=== PATIENT | male | born 1950 ===

== ENCOUNTER 2020-06-18 19:38 | Inpatient (IN) | payer MEDICARE, OTHER ==
[~2020-06-18] VITALS: Ht 172.7 cm; Wt 50.8 kg
--- NOTE | 2020-06-18 19:55 | NUR ---
RN BLADDER SCANNED PT. >999. MACDONALD NOT DRAINING. RN TO PLACE THREE WAY WITH UROJET FOR EXPECTED CBI. PT IRRITABLE DUE TO URINARY DISCOMFORT. WCTM.
[2020-06-18] MEDS ORDERED: LIDOCAINE 2%,20 ML JEL.PF.APP MM ONE ×2 (19:57→20:30)
[2020-06-18] MEDS ORDERED: SODIUM CHLORIDE FLUSH 10ML SYR IVF ONE (20:30)
--- NOTE | 2020-06-18 20:54 | NUR ---
CBI STARTED. DIFFICULTY MACDONALD INSERTION. ATTEMPTED WITH 20F, NO SUCCESS. SUCCESSFUL WITH 18F. ATTEMPTED TO IRRIGATE WITH SYRINGE. FLUID RETURN, PINK TINGED. NO CLOTS. PLACED ON CBI. FLUID RETURN NOTED. NO CLOTS PRESENT. WILL CONTINUE TO MONITOR.
[2020-06-18 21:18] LABS: BASOPHILS % (AUTO) 0 % (0-1); EOSINOPHILS % (AUTO) 0 % (1-7); LYMPHOCYTES % (AUTO) 13 % (22-44); MEAN CORPUSCULAR HEMOGLOBIN 18.5 pg (27.5-34.5); MONOCYTES % (AUTO) 10 % (2-9); NEUTROPHILS % (AUTO) 76 % (42-75); PLATELET COUNT 92 x10^3/uL (130-400); RED BLOOD COUNT 3.39 x10^6/uL (4.38-5.82); RED CELL DISTRIBUTION WIDTH 18.7 % (9.4-14.8)
[2020-06-18 21:20] LABS: INTERNATIONAL NORMALIZED RATIO 1.38 (0.93-1.1); PROTHROMBIN TIME 14.6 Seconds (9.6-11.5)
[2020-06-18 21:21] LABS: ALANINE AMINOTRANSFERASE 12 U/L (12-78); ALBUMIN 2.4 g/dL (3.4-5.0); ANION GAP 7 mmol/L (5-15); CHLORIDE 110 mmol/L (98-107); CREATININE 0.87 mg/dL (0.7-1.3)
[2020-06-18 21:23] LABS: ALKALINE PHOSPHATASE 47 U/L (45-117); BILIRUBIN,TOTAL 0.5 mg/dL (0.2-1.0); TOTAL PROTEIN 7.3 g/dL (6.4-8.2)
--- NOTE | 2020-06-18 21:30 | NUR ---
600output. [place] tinged.
[2020-06-18 21:57] LABS: MD MORPH REVIEW ONLY
[2020-06-18 22:00] LABS: MICROCYTOSIS 2+; TARGET CELLS 1+
[2020-06-18 22:01] LABS: <PLATELET ESTIMATE> DECREASED; <PLT MORPHOLOGY> NORMAL PLT MORPH; HYPOCHROMIA 2+
[2020-06-18 22:49] VITALS: BP 119/85
[2020-06-18 23:09] VITALS: BP 112/97
--- NOTE | 2020-06-18 23:18 | NUR ---
550 output from mendoza. 1L of fluids in via CBI. Output is clearing. ordered to stop CBI.
[2020-06-18] MEDS ORDERED: DILTIAZEM 5 MG/ML, 5ML ONE (23:20)
[2020-06-18] MEDS ORDERED: DILTIAZEM 5 MG/ML, 5ML IVPush ONE (23:30)
[2020-06-18] MEDS ORDERED: DILTIAZEM 125 MG in SODIUM CHLORIDE 0.9% 100 ML IV SCH (23:30)
--- NOTE | 2020-06-18 23:35 | NUR ---
CBI stopped. Urinary output still present when pt states he is urinating.
--- NOTE | 2020-06-19 00:15 | NUR ---
Report given to KAYLEEN Mendoza.
[2020-06-19] MEDS ORDERED: DOCUSATE 100 MG CAPSULE PO PRN (01:00)
[2020-06-19] MEDS ORDERED: ONDANSETRON ODT 4 MG PO PRN (01:00)
[2020-06-19] MEDS ORDERED: ONDANSETRON 2MG/ML, 2ML IVPush PRN (01:00)
[2020-06-19] MEDS ORDERED: BISACODYL 10 MG SUPP PR PRN (01:00)
[2020-06-19] MEDS ORDERED: LABETALOL 5MG/ML, 20ML IVPush PRN (01:00)
[2020-06-19] MEDS ORDERED: morphine SULFATE 10 MG/ML, 1ML IVPush PRN (01:00)
[2020-06-19] MEDS ORDERED: POLYETHYLENE GLYCOL 17 GM PACKET PO PRN (01:00)
[2020-06-19] MEDS ORDERED: PROMETHAZINE 25 MG/ML, 1ML IM PRN (01:00)
[2020-06-19 01:38] VITALS: BP 121/66
[2020-06-19 01:39] VITALS: BP 121/66
[2020-06-19] MEDS ORDERED: POTASSIUM CHLORIDE 40 MEQ in SODIUM CHLORIDE 0.9% 500 ML IV ONE (02:00)
[2020-06-19] MEDS: CEFTRIAXONE PMX 2GM/50ML 50 ML IVPB SCH (02:16)
[2020-06-19] MEDS: AZITHROMYCIN 500 MG in SODIUM CHLORIDE 0.9% 250 ML IV SCH (02:39)
[2020-06-19 07:16] VITALS: BP 108/77
[2020-06-19 07:19] LABS: BASOPHILS % (AUTO) 0 % (0-1); EOSINOPHILS % (AUTO) 0 % (1-7); LYMPHOCYTES % (AUTO) 5 % (22-44); MEAN CORPUSCULAR HEMOGLOBIN 20.7 pg (27.5-34.5); MEAN CORPUSCULAR HGB CONC 30.5 g/dL (33.2-36.2); MEAN PLATELET VOLUME 8.5 fL (7.4-10.4); MONOCYTES % (AUTO) 9 % (2-9); NEUTROPHILS % (AUTO) 87 % (42-75); PLATELET COUNT 93 x10^3/uL (130-400); RED BLOOD COUNT 3.64 x10^6/uL (4.38-5.82)
[2020-06-19 07:24] LABS: ALBUMIN 2.4 g/dL (3.4-5.0); ANION GAP 6 mmol/L (5-15); CALCIUM 7.7 mg/dL (8.5-10.1); CHLORIDE 114 mmol/L (98-107)
[2020-06-19 07:42] LABS: MD MORPH REVIEW ONLY
[2020-06-19 07:45] LABS: ANISOCYTOSIS 2+; HYPOCHROMIA 2+; MICROCYTOSIS 2+; TARGET CELLS 1+
[2020-06-19 07:46] LABS: <PLATELET ESTIMATE> DECREASED; <PLT MORPHOLOGY> NORMAL PLT MORPH; SCHISTOCYTES 1+; TEAR DROPS 1+
[2020-06-19] MEDS ORDERED: LIDOCAINE 1%, 10ML ONE (07:46)
[2020-06-19 07:55] LABS: ALANINE AMINOTRANSFERASE 14 U/L (12-78); ALKALINE PHOSPHATASE 42 U/L (45-117); BILIRUBIN,TOTAL 1.3 mg/dL (0.2-1.0); CHOL/HDL RATIO 1.7; CHOLESTEROL, TOTAL 52 mg/dL (140-239); CREATININE 0.81 mg/dL (0.7-1.3); HDL CHOL % 60 % (26-37); HDL CHOLESTEROL (DIRECT) 31 mg/dL (40-60); LDL CHOLESTEROL,CALCULATED 14 mg/dL (54-169); LDL/HDL RATIO 0.5 (0.5-3.0); TOTAL PROTEIN 7.2 g/dL (6.4-8.2); TRIGLYCERIDES 36 mg/dL (50-200); VLDL CHOLESTEROL 7 mg/dL (0-25)
[2020-06-19] MEDS ORDERED: POTASSIUM CHLORIDE 20 MEQ TAB.ER.PRT PO ONE (08:30)
[2020-06-19] MEDS: ALBUMIN HUMAN 25% 100 ML IV SCH ×2 (10:11→17:26)
[2020-06-19] MEDS ORDERED: DILTIAZEM 60 MG TABLET PO SCH (11:00)
[2020-06-19 12:27] VITALS: BP 99/64
[2020-06-19] MEDS ORDERED: MAGNESIUM SULFATE PMX 2GM/50ML 50 ML IV ONE (13:30)
[2020-06-19] MEDS ORDERED: POTASSIUM PHOSPHATE 22 MEQ in SODIUM CHLORIDE 0.9% 500 ML IV ONE (13:30)
[2020-06-19 20:44] VITALS: BP 95/64
[2020-06-19] MEDS: DILTIAZEM 60 MG TABLET PO SCH (20:55)
[2020-06-19] MEDS ORDERED: OXYBUTYNIN CHLORIDE 5 MG TABLET ONE (22:30)
[2020-06-19] MEDS: OXYBUTYNIN CHLORIDE 5 MG TABLET PO SCH (22:32)
[2020-06-20] VITALS (13 sets, daily range): BP systolic 92–124; BP diastolic 49–80
[2020-06-20] MEDS: OXYcodone IR 5MG TABLET PO PRN ×2 (00:55→21:50)
[2020-06-20] MEDS ORDERED: LORazepam 2 MG/ML, 1ML IVPush PRN (01:30)
[2020-06-20] MEDS: CEFTRIAXONE PMX 2GM/50ML 50 ML IVPB SCH (02:38)
[2020-06-20] MEDS: DILTIAZEM 60 MG TABLET PO SCH ×3 (03:37→17:34)
[2020-06-20] MEDS: AZITHROMYCIN 500 MG in SODIUM CHLORIDE 0.9% 250 ML IV SCH (03:37)
[2020-06-20] MEDS: ALBUMIN HUMAN 25% 100 ML IV SCH ×2 (05:06→11:00)
[2020-06-20] MEDS ORDERED: HALOPERIDOL 5 MG/ML IM PRN (08:00)
[2020-06-20] MEDS: OXYBUTYNIN CHLORIDE 5 MG TABLET PO SCH ×2 (11:08→21:46)
[2020-06-20 11:48] LABS: BASOPHILS % (AUTO) 0 % (0-1); EOSINOPHILS % (AUTO) 0 % (1-7); LYMPHOCYTES % (AUTO) 11 % (22-44); MEAN CORPUSCULAR HEMOGLOBIN 20.2 pg (27.5-34.5); MEAN PLATELET VOLUME 8.4 fL (7.4-10.4); MONOCYTES % (AUTO) 7 % (2-9); NEUTROPHILS % (AUTO) 81 % (42-75); PLATELET COUNT 75 x10^3/uL (130-400); RED BLOOD COUNT 3.25 x10^6/uL (4.38-5.82); RED CELL DISTRIBUTION WIDTH 22.5 % (9.4-14.8)
[2020-06-20 11:56] LABS: % IRON SATURATION 4 % (20-55); ALANINE AMINOTRANSFERASE 9 U/L (12-78); ALBUMIN 2.8 g/dL (3.4-5.0); ANION GAP 7 mmol/L (5-15); CALCIUM 7.7 mg/dL (8.5-10.1); CHLORIDE 114 mmol/L (98-107); CREATININE 0.62 mg/dL (0.7-1.3); IRON LEVEL 12 mcg/dL (65-175); TOTAL IRON BINDING CAPACITY 267 mcg/dL (250-450)
[2020-06-20 11:59] LABS: ALKALINE PHOSPHATASE 33 U/L (45-117); BILIRUBIN,TOTAL 0.8 mg/dL (0.2-1.0); TOTAL PROTEIN 6.3 g/dL (6.4-8.2)
[2020-06-20 12:16] LABS: MEAN CORPUSCULAR HGB CONC 29.6 g/dL (33.2-36.2)
[2020-06-20 12:44] LABS: MD SCAN
[2020-06-21 01:06] VITALS: BP 124/73
[2020-06-21] MEDS: DILTIAZEM 60 MG TABLET PO SCH ×3 (01:09→16:34)
[2020-06-21 01:42] VITALS: BP 124/73
[2020-06-21 04:41] LABS: BASOPHILS % (AUTO) 1 % (0-1); EOSINOPHILS % (AUTO) 0 % (1-7); LYMPHOCYTES % (AUTO) 10 % (22-44); MEAN CORPUSCULAR HEMOGLOBIN 23.8 pg (27.5-34.5); MEAN CORPUSCULAR HGB CONC 32.1 g/dL (33.2-36.2); MEAN PLATELET VOLUME 8.6 fL (7.4-10.4); MONOCYTES % (AUTO) 8 % (2-9); NEUTROPHILS % (AUTO) 81 % (42-75); PLATELET COUNT 77 x10^3/uL (130-400); RED BLOOD COUNT 4.39 x10^6/uL (4.38-5.82)
[2020-06-21 04:52] LABS: ANION GAP 10 mmol/L (5-15); CALCIUM 7.8 mg/dL (8.5-10.1); CHLORIDE 115 mmol/L (98-107)
[2020-06-21 04:54] LABS: CREATININE 0.61 mg/dL (0.7-1.3)
[2020-06-21 05:43] LABS: ANISOCYTOSIS 2+; HYPOCHROMIA 1+; MD MORPH REVIEW ONLY; MICROCYTOSIS 1+
[2020-06-21 05:44] LABS: <PLATELET ESTIMATE> DECREASED; <PLT MORPHOLOGY> NORMAL PLT MORPH; ECHINOCYTES 1+; TEAR DROPS 1+
[2020-06-21 07:06] VITALS: BP 112/77
[2020-06-21] MEDS: OXYBUTYNIN CHLORIDE 5 MG TABLET PO SCH ×2 (09:00→21:53)
[2020-06-21 12:06] VITALS: BP 118/77
[2020-06-21 19:06] VITALS: BP 123/79
[2020-06-21] MEDS: OXYcodone IR 5MG TABLET PO PRN (21:53)
[2020-06-22 00:05] LABS: OCCULT BLOOD POSITIVE (NEGATIVE)
[2020-06-22 00:28] VITALS: BP 119/76
[2020-06-22] MEDS: DILTIAZEM 60 MG TABLET PO SCH ×3 (00:32→16:37)
[2020-06-22] MEDS: OXYBUTYNIN CHLORIDE 5 MG TABLET PO SCH ×2 (08:38→21:31)
[2020-06-22] MEDS: FUROSEMIDE 40 MG TABLET PO SCH (08:39)
[2020-06-22] MEDS: SPIRONOLACTONE 25 MG TABLET PO SCH ×2 (08:39→21:31)
[2020-06-22 10:13] LABS: BASOPHILS % (AUTO) 0 % (0-1); EOSINOPHILS % (AUTO) 0 % (1-7); LYMPHOCYTES % (AUTO) 7 % (22-44); MEAN CORPUSCULAR HEMOGLOBIN 23.7 pg (27.5-34.5); MEAN CORPUSCULAR HGB CONC 31.5 g/dL (33.2-36.2); MEAN PLATELET VOLUME 8.7 fL (7.4-10.4); MONOCYTES % (AUTO) 6 % (2-9); NEUTROPHILS % (AUTO) 87 % (42-75); PLATELET COUNT 95 x10^3/uL (130-400); RED BLOOD COUNT 5.31 x10^6/uL (4.38-5.82); RED CELL DISTRIBUTION WIDTH 27.2 % (9.4-14.8)
[2020-06-22 10:19] LABS: ANION GAP 10 mmol/L (5-15); CALCIUM 8.5 mg/dL (8.5-10.1); CHLORIDE 114 mmol/L (98-107)
[2020-06-22 12:08] VITALS: BP 118/73
[2020-06-22 13:08] LABS: MD SCAN
[2020-06-22] MEDS: MOVIPREP POWDER 1 PREP KIT PO SCH ×2 (17:45→21:31)
[2020-06-22 18:36] VITALS: BP 99/88
[2020-06-22] MEDS ORDERED: DIPHENHYDRAMINE 50 MG/ML, 1ML IVPush ONE (20:00)
[2020-06-23] MEDS: DILTIAZEM 60 MG TABLET PO SCH ×3 (01:55→16:42)
[2020-06-23 02:02] VITALS: BP 122/80
[2020-06-23] MEDS: PANTOPRAZOLE 40MG TABLET PO SCH (04:54)
[2020-06-23 08:16] VITALS: BP 118/77
[2020-06-23 08:29] LABS: BASOPHILS % (AUTO) 1 % (0-1); EOSINOPHILS % (AUTO) 1 % (1-7); LYMPHOCYTES % (AUTO) 10 % (22-44); MEAN CORPUSCULAR HEMOGLOBIN 23.6 pg (27.5-34.5); MEAN CORPUSCULAR HGB CONC 31.5 g/dL (33.2-36.2); MEAN PLATELET VOLUME 8.5 fL (7.4-10.4); MONOCYTES % (AUTO) 8 % (2-9); NEUTROPHILS % (AUTO) 80 % (42-75); PLATELET COUNT 74 x10^3/uL (130-400); RED CELL DISTRIBUTION WIDTH 28.2 % (9.4-14.8)
[2020-06-23 08:31] LABS: ANION GAP 8 mmol/L (5-15); CALCIUM 8.3 mg/dL (8.5-10.1); CHLORIDE 109 mmol/L (98-107)
[2020-06-23 08:32] LABS: CREATININE 0.69 mg/dL (0.7-1.3)
[2020-06-23 08:39] LABS: INTERNATIONAL NORMALIZED RATIO 1.32 (0.93-1.1)
[2020-06-23 08:54] LABS: MD SCAN
[2020-06-23] MEDS: FUROSEMIDE 40 MG TABLET PO SCH (08:54)
[2020-06-23] MEDS: SPIRONOLACTONE 25 MG TABLET PO SCH ×2 (08:54→20:20)
[2020-06-23] MEDS: OXYBUTYNIN CHLORIDE 5 MG TABLET PO SCH ×2 (08:54→20:20)
[2020-06-23 13:08] VITALS: BP 117/81
[2020-06-23] MEDS ORDERED: MOVIPREP POWDER 1 PREP KIT PO ONE (15:00)
[2020-06-23 16:43] VITALS: BP 118/80
[2020-06-23 20:01] VITALS: BP 112/75
[2020-06-24] MEDS: DILTIAZEM 60 MG TABLET PO SCH ×3 (00:16→17:39)
[2020-06-24 00:57] VITALS: BP 120/79
[2020-06-24] MEDS: PANTOPRAZOLE 40MG TABLET PO SCH (04:33)
[2020-06-24 06:19] LABS: ANION GAP 8 mmol/L (5-15); CALCIUM 8.2 mg/dL (8.5-10.1); CHLORIDE 109 mmol/L (98-107); CREATININE 0.58 mg/dL (0.7-1.3)
[2020-06-24 06:31] VITALS: BP 100/69
[2020-06-24 07:05] LABS: BASOPHILS % (AUTO) 1 % (0-1); EOSINOPHILS % (AUTO) 1 % (1-7); LYMPHOCYTES % (AUTO) 12 % (22-44); MEAN CORPUSCULAR HEMOGLOBIN 23.8 pg (27.5-34.5); MEAN CORPUSCULAR HGB CONC 31.4 g/dL (33.2-36.2); MEAN PLATELET VOLUME 8.5 fL (7.4-10.4); MONOCYTES % (AUTO) 9 % (2-9); NEUTROPHILS % (AUTO) 79 % (42-75); PLATELET COUNT 70 x10^3/uL (130-400); RED BLOOD COUNT 5.03 x10^6/uL (4.38-5.82); RED CELL DISTRIBUTION WIDTH 29.2 % (9.4-14.8)
[2020-06-24 07:08] LABS: MD NO
[2020-06-24] MEDS: SPIRONOLACTONE 25 MG TABLET PO SCH ×2 (08:56→20:06)
[2020-06-24] MEDS: FUROSEMIDE 40 MG TABLET PO SCH (08:56)
[2020-06-24] MEDS: OXYBUTYNIN CHLORIDE 5 MG TABLET PO SCH ×2 (08:56→20:06)
[2020-06-24] MEDS ORDERED: CHLORHEXIDINE 15 ML UDC ONE (11:57)
[2020-06-24] MEDS ORDERED: PROPOFOL 50 ML ONE (12:58)
[2020-06-24] MEDS ORDERED: MIDAZOLAM 1 MG/ML, 2ML ONE (13:16)
[2020-06-24 17:37] VITALS: BP 105/73
[2020-06-24 19:08] VITALS: BP 102/76
[2020-06-25] MEDS: DILTIAZEM 60 MG TABLET PO SCH ×4 (00:34→19:44)
[2020-06-25 04:55] LABS: BASOPHILS % (AUTO) 1 % (0-1); EOSINOPHILS % (AUTO) 1 % (1-7); LYMPHOCYTES % (AUTO) 13 % (22-44); MEAN CORPUSCULAR HEMOGLOBIN 23.9 pg (27.5-34.5); MEAN CORPUSCULAR HGB CONC 31.8 g/dL (33.2-36.2); MEAN PLATELET VOLUME 8.5 fL (7.4-10.4); MONOCYTES % (AUTO) 10 % (2-9); NEUTROPHILS % (AUTO) 75 % (42-75); PLATELET COUNT 76 x10^3/uL (130-400); RED BLOOD COUNT 4.64 x10^6/uL (4.38-5.82); RED CELL DISTRIBUTION WIDTH 29.2 % (9.4-14.8)
[2020-06-25 05:10] LABS: CHLORIDE 107 mmol/L (98-107)
[2020-06-25 05:19] LABS: ALANINE AMINOTRANSFERASE 13 U/L (12-78); ALBUMIN 2.5 g/dL (3.4-5.0); ALKALINE PHOSPHATASE 39 U/L (45-117); ANION GAP 10 mmol/L (5-15); BILIRUBIN,TOTAL 0.5 mg/dL (0.2-1.0); CALCIUM 8.3 mg/dL (8.5-10.1); CREATININE 0.74 mg/dL (0.7-1.3); TOTAL PROTEIN 6.7 g/dL (6.4-8.2)
[2020-06-25 05:49] LABS: MD MORPH REVIEW ONLY
[2020-06-25 05:50] LABS: ANISOCYTOSIS 2+; HYPOCHROMIA 1+; MICROCYTOSIS 1+
[2020-06-25 05:51] LABS: <PLATELET ESTIMATE> DECREASED; <PLT MORPHOLOGY> NORMAL PLT MORPH
[2020-06-25] MEDS: PANTOPRAZOLE 40MG TABLET PO SCH (05:57)
[2020-06-25] MEDS ORDERED: POTASSIUM CHLORIDE 20 MEQ TAB.ER.PRT PO ONE ×2 (07:00→15:30)
[2020-06-25] MEDS ORDERED: MAGNESIUM SULFATE PMX 2GM/50ML 50 ML IV ONE (08:30)
[2020-06-25] MEDS: FUROSEMIDE 40 MG TABLET PO SCH (09:42)
[2020-06-25] MEDS: SPIRONOLACTONE 25 MG TABLET PO SCH ×2 (09:42→19:44)
[2020-06-25] MEDS: OXYBUTYNIN CHLORIDE 5 MG TABLET PO SCH ×2 (09:42→19:44)
[2020-06-25 12:12] VITALS: BP 110/76
[2020-06-25] MEDS ORDERED: POTASSIUM CHLORIDE 40 MEQ in SODIUM CHLORIDE 0.9% 500 ML IV ONE (15:30)
[2020-06-25 19:41] VITALS: BP 126/84
[2020-06-26 02:00] VITALS: BP 121/81
[2020-06-26] MEDS: DILTIAZEM 60 MG TABLET PO SCH ×4 (03:00→21:46)
[2020-06-26] MEDS ORDERED: DILTIAZEM 30 MG TABLET ONE (03:18)
[2020-06-26] MEDS: PANTOPRAZOLE 40MG TABLET PO SCH (05:47)
[2020-06-26 06:29] LABS: ANION GAP 7 mmol/L (5-15); CALCIUM 8.1 mg/dL (8.5-10.1); CHLORIDE 107 mmol/L (98-107)
[2020-06-26 06:30] LABS: CREATININE 0.79 mg/dL (0.7-1.3)
[2020-06-26 07:05] VITALS: BP 104/73
[2020-06-26] MEDS ORDERED: MAGNESIUM SULFATE PMX 2GM/50ML 50 ML IV ONE (09:30)
[2020-06-26] MEDS: OXYBUTYNIN CHLORIDE 5 MG TABLET PO SCH ×2 (10:06→21:46)
[2020-06-26] MEDS: FUROSEMIDE 40 MG TABLET PO SCH (10:07)
[2020-06-26] MEDS: SPIRONOLACTONE 25 MG TABLET PO SCH ×2 (10:07→21:46)
[2020-06-26 13:50] VITALS: BP 128/72
[2020-06-26 18:57] VITALS: BP 113/72
[2020-06-26 21:44] VITALS: BP 100/70
[2020-06-27 01:54] VITALS: BP 109/70
[2020-06-27 02:43] VITALS: BP 108/69
[2020-06-27] MEDS: DILTIAZEM 60 MG TABLET PO SCH ×2 (02:46→11:25)
[2020-06-27] MEDS: PANTOPRAZOLE 40MG TABLET PO SCH (06:12)
[2020-06-27 08:03] VITALS: BP 105/73
[2020-06-27 11:20] VITALS: BP 103/71
[2020-06-27] MEDS: SPIRONOLACTONE 25 MG TABLET PO SCH ×2 (11:24→23:07)
[2020-06-27] MEDS: FUROSEMIDE 40 MG TABLET PO SCH (11:25)
[2020-06-27] MEDS: OXYBUTYNIN CHLORIDE 5 MG TABLET PO SCH (11:25)
[2020-06-27 12:06] VITALS: BP 101/73
[2020-06-27] MEDS ORDERED: DILTIAZEM 30 MG TABLET ONE (14:12)
[2020-06-27] MEDS: DILTIAZEM 90 MG TABLET PO SCH ×2 (14:14→23:07)
[2020-06-27] MEDS: TAMSULOSIN 0.4 MG CAP.ER.24H PO SCH (18:07)
[2020-06-27 19:13] VITALS: BP 102/75
[2020-06-28 02:55] VITALS: BP 105/77
[2020-06-28] MEDS ORDERED: DILTIAZEM 30 MG TABLET ONE ×4 (05:20→21:11)
[2020-06-28] MEDS: DILTIAZEM 90 MG TABLET PO SCH ×3 (05:30→21:14)
[2020-06-28] MEDS: PANTOPRAZOLE 40MG TABLET PO SCH (05:31)
[2020-06-28 07:18] LABS: BASOPHILS % (AUTO) 1 % (0-1); EOSINOPHILS % (AUTO) 1 % (1-7); LYMPHOCYTES % (AUTO) 15 % (22-44); MEAN CORPUSCULAR HEMOGLOBIN 23.9 pg (27.5-34.5); MEAN CORPUSCULAR HGB CONC 31.5 g/dL (33.2-36.2); MEAN PLATELET VOLUME 8.7 fL (7.4-10.4); MONOCYTES % (AUTO) 9 % (2-9); NEUTROPHILS % (AUTO) 74 % (42-75); PLATELET COUNT 73 x10^3/uL (130-400); RED BLOOD COUNT 4.53 x10^6/uL (4.38-5.82); RED CELL DISTRIBUTION WIDTH 30.4 % (9.4-14.8)
[2020-06-28 07:29] LABS: ANION GAP 3 mmol/L (5-15); CALCIUM 8.2 mg/dL (8.5-10.1); CHLORIDE 105 mmol/L (98-107); CREATININE 0.85 mg/dL (0.7-1.3); MD NO
[2020-06-28 08:00] VITALS: BP 99/64
[2020-06-28] MEDS: TAMSULOSIN 0.4 MG CAP.ER.24H PO SCH ×2 (09:00→10:49)
[2020-06-28] MEDS: LACTOBACILLUS CHEW TABLET PO SCH ×3 (09:00→21:17)
[2020-06-28] MEDS ORDERED: MAGNESIUM SULFATE PMX 4GM/100M 100 ML IV ONE (09:00)
[2020-06-28] MEDS: FERROUS SULFATE 325 MG TABLET PO SCH ×2 (09:00→10:48)
[2020-06-28] MEDS: FUROSEMIDE 40 MG TABLET PO SCH ×2 (09:00→10:49)
[2020-06-28] MEDS: SPIRONOLACTONE 25 MG TABLET PO SCH ×3 (09:00→21:14)
[2020-06-28] MEDS ORDERED: TAMSULOSIN 0.4 MG CAP.ER.24H PO SCH (09:00)
[2020-06-28] MEDS ORDERED: ACETAMINOPHEN 325 MG TABLET PO PRN (09:00)
[2020-06-28 14:00] VITALS: BP 96/65
[2020-06-28] MEDS ORDERED: TAMSULOSIN 0.4 MG CAP.ER.24H PO ONE (14:30)
[2020-06-28 18:34] VITALS: BP 103/69
[2020-06-29 01:55] VITALS: BP 97/64
[2020-06-29 06:08] VITALS: BP 100/67
[2020-06-29] MEDS: PANTOPRAZOLE 40MG TABLET PO SCH (06:08)
[2020-06-29] MEDS: DILTIAZEM 90 MG TABLET PO SCH ×3 (06:09→19:53)
[2020-06-29 07:25] VITALS: BP 100/65
[2020-06-29] MEDS: FUROSEMIDE 40 MG TABLET PO SCH (08:43)
[2020-06-29] MEDS: LACTOBACILLUS CHEW TABLET PO SCH ×3 (08:44→19:56)
[2020-06-29] MEDS: SPIRONOLACTONE 25 MG TABLET PO SCH ×2 (08:44→19:53)
[2020-06-29] MEDS: TAMSULOSIN 0.4 MG CAP.ER.24H PO SCH (08:44)
[2020-06-29 12:13] VITALS: BP 100/69
[2020-06-29 18:34] VITALS: BP 105/73
[2020-06-29 20:07] VITALS: BP 95/65
[2020-06-30 03:01] VITALS: BP 100/74
[2020-06-30] MEDS: DILTIAZEM 90 MG TABLET PO SCH ×3 (05:46→19:45)
[2020-06-30] MEDS: PANTOPRAZOLE 40MG TABLET PO SCH (05:46)
[2020-06-30 08:20] VITALS: BP 93/62
[2020-06-30] MEDS: FERROUS SULFATE 325 MG TABLET PO SCH (08:37)
[2020-06-30] MEDS: FUROSEMIDE 40 MG TABLET PO SCH (08:37)
[2020-06-30] MEDS: LACTOBACILLUS CHEW TABLET PO SCH ×3 (08:38→19:46)
[2020-06-30] MEDS: SPIRONOLACTONE 25 MG TABLET PO SCH ×2 (08:38→19:45)
[2020-06-30] MEDS: TAMSULOSIN 0.4 MG CAP.ER.24H PO SCH (08:38)
[2020-06-30 14:14] VITALS: BP 107/69
[2020-06-30 18:35] VITALS: BP 94/68
[2020-07-01 00:13] VITALS: BP 98/66
[2020-07-01] MEDS: PANTOPRAZOLE 40MG TABLET PO SCH (05:03)
[2020-07-01] MEDS: DILTIAZEM 90 MG TABLET PO SCH (05:03)
[2020-07-01] MEDS ORDERED: TAMS-11 PO (07:10)
[2020-07-01] MEDS ORDERED: DILT90TA PO (07:10)
[2020-07-01] MEDS ORDERED: PANT40TA6 PO (07:10)
[2020-07-01] MEDS ORDERED: FURO40TA6 PO (07:10)
[2020-07-01] MEDS ORDERED: SPIR25TA PO (07:10)
[2020-07-01] MEDS ORDERED: FERR-51 PO (07:10)
[2020-07-01 07:20] VITALS: BP 87/51
[2020-07-01 08:15] VITALS: BP 95/65
[2020-07-01] MEDS: LACTOBACILLUS CHEW TABLET PO SCH (08:15)
[2020-07-01] MEDS: TAMSULOSIN 0.4 MG CAP.ER.24H PO SCH (08:15)
[2020-07-01] MEDS: FUROSEMIDE 40 MG TABLET PO SCH (08:15)
[2020-07-01] MEDS: SPIRONOLACTONE 25 MG TABLET PO SCH (08:15)
== END 2020-07-01 09:57 | disposition home health service (06) | DRG 432 ==
LOC: ED 23:18 → EDIP 23:33 → 4EST 06-19 01:26 → 4WST 06-19 18:37 → 5SO 06-25 20:09 → 4WST 06-28 04:02
PROVIDERS: ADMIT Internal Medicine; ATTEND Internal Medicine
PROC: 30230N1 Transfusion of Nonautologous Red Blood Cells into Peripheral Vein, Open Approach (ICD-10-PCS; principal; 2020-06-18)
PROC: 0W9G3ZZ Drainage of Peritoneal Cavity, Percutaneous Approach (ICD-10-PCS; 2020-06-19)
PROC: 0DB48ZX Excision of Esophagogastric Junction, Via Natural or Artificial Opening Endoscopic, Diagnostic (ICD-10-PCS; 2020-06-24)
PROC: 0DJD8ZZ Inspection of Lower Intestinal Tract, Via Natural or Artificial Opening Endoscopic (ICD-10-PCS; 2020-06-24)
DX: K74.60 Unspecified cirrhosis of liver (principal); J18.9 Pneumonia, unspecified organism; G93.41 Metabolic encephalopathy; D61.818 Other pancytopenia; R18.8 Other ascites; D68.9 Coagulation defect, unspecified; D62 Acute posthemorrhagic anemia; F05 Delirium due to known physiological condition; J98.11 Atelectasis; K22.10 Ulcer of esophagus without bleeding; Z20.828 Contact with and (suspected) exposure to other viral communicable diseases; I48.91 Unspecified atrial fibrillation; D50.9 Iron deficiency anemia, unspecified; D63.8 Anemia in other chronic diseases classified elsewhere; E83.39 Other disorders of phosphorus metabolism; E83.42 Hypomagnesemia; D69.6 Thrombocytopenia, unspecified; E83.51 Hypocalcemia; E87.6 Hypokalemia; F03.90 Unspecified dementia, unspecified severity, without behavioral disturbance, psychotic disturbance, mood disturbance, and anxiety; I10 Essential (primary) hypertension; I35.8 Other nonrheumatic aortic valve disorders; I37.1 Nonrheumatic pulmonary valve insufficiency; K44.9 Diaphragmatic hernia without obstruction or gangrene; Z87.19 Personal history of other diseases of the digestive system; Z91.19 Patient's noncompliance with other medical treatment and regimen; Z79.899 Other long term (current) drug therapy; Z79.891 Long term (current) use of opiate analgesic; Z79.01 Long term (current) use of anticoagulants; R33.9 Retention of urine, unspecified; B19.20 Unspecified viral hepatitis C without hepatic coma
CPT/HCPCS: 36415; 36430; 49083; 71045; 76700; 80048; 80053; 80061; 80074; 82042; 82140; 82272; 82330; 82607; 82728; 83010; 83036; 83540; 83550; 83615; 83735; 84100; 84132; 84157; 84439; 84443; 85025; 85379; 85384; 85610; 85730; 86140; 86850; 86900; 86923; 87070; 87205; 87521; 87522; 87806; 88112; 88305; 89051; 93005; 93306; 93975; 96374; G0378; J0456; J0696; J2250; J2704; J3480; P9047; 92523-GN; G0475; J2270; J3475; J7040; J7050; P9016; U0003